=== PATIENT | female | born 1990 | race Caucasian/White ===

== ENCOUNTER 2019-10-12 12:51 | Emergency (ER) | payer BC ==
[~2019-10-12] VITALS: Ht 157.5 cm; Wt 76.2 kg
[2019-10-12 13:31] VITALS: Ht 157.5 cm; Wt 76.2 kg
[2019-10-12 14:20] VITALS: BP 128/79
== END 2019-10-12 14:20 | disposition home or self-care (01) ==
LOC: ED 12:51
DX: B00.9 Herpesviral infection, unspecified (principal)